=== PATIENT | female | born 1940 | race Caucasian/White ===

== ENCOUNTER 2022-12-23 13:27 | Inpatient (IN) | payer OTHER ==
[~2022-12-23] VITALS: Ht 152.4 cm; Wt 48.5 kg
--- NOTE | 2022-12-23 14:05 | NUR ---
PATIENT IS RECIEVED SAYING THAT SHE HAS BEEN HAVING DIFFICULTY BREATHING FOR THREE DAYS AND CANNOT WALK WITHOUT GETTING FATIGUED. RESPIRATORY THERAPY IS NOTIFIED.
[2022-12-23] MEDS ORDERED: CRESTOR40 MG (14:20)
[2022-12-23] MEDS ORDERED: LIPOFEN150 MG (14:20)
[2022-12-23] MEDS ORDERED: PRILOSEC OTC20 MG (14:20)
[2022-12-23] MEDS ORDERED: ALDACTONE25 MG (14:21)
[2022-12-23] MEDS ORDERED: CARDURA XL8 MG (14:21)
[2022-12-23] MEDS ORDERED: SYNTHROID50 MCG (14:21)
[2022-12-23] MEDS ORDERED: ZYRTEC10 M3 (14:21)
[2022-12-23] MEDS ORDERED: TOPROL XL50 M1 (14:21)
[2022-12-23] MEDS ORDERED: LASIX20 MG (14:22)
[2022-12-23] MEDS ORDERED: SENOKOT8.6 M1 (14:22)
--- NOTE | 2022-12-23 14:24 | NUR ---
SE ORIENTA PTE SOBRE EL TRATAMIENTO ORDENADO POR EL DR OWEN PTE ALERTA Y ORIENTADO POR 3 SE REALIZAN MUESTRAS DE LABORATORIO PTE EN ESPERA DE ESTUDIO
--- NOTE | 2022-12-23 15:30 | NUR ---
SE RECIBE PTE ALERTA ORIENTADA X3.EN CAMA CON BARANDAS ELEVADAS POR OLGUIN SEGURIDAD EN UNIDAD DE CHEST PAIN #18, CONECTADA A MONITOR CARDIACO [id number](SINUSAL).PENDIENTE RESULTADOS DE LABORATORIO Y REEVALUACION MEDICA.SE ORIENTA PTE SOBRE OBJETIVO DE TX MEDICO.
--- NOTE | 2022-12-23 16:33 | NUR ---
SE ORIENTA PTE SOBRE TX A SEGUIR, LA MISMA REFIERE ENTENDER, SE COLECTAN MUESTRAS DE LAB BAJO MEDIDAS ASEPTICAS Y SE ADMINISTRAN MEDICAMENTOS NAUN ORDEN MEDICA
== END 2023-01-01 10:02 | disposition expired | DRG 189 ==
LOC: ER 13:27 → CPU-OBS 13:40 → ER 13:40 → ICU-2 18:45 → ICU 18:45
PROVIDERS: ADMIT Internal Medicine; ATTEND Internal Medicine
PROC: BW24ZZZ Computerized Tomography (CT Scan) of Chest and Abdomen (ICD-10-PCS; 2022-12-23)
PROC: 30243N1 Transfusion of Nonautologous Red Blood Cells into Central Vein, Percutaneous Approach (ICD-10-PCS; 2022-12-24)
PROC: 3E0F7GC Introduction of Other Therapeutic Substance into Respiratory Tract, Via Natural or Artificial Opening (ICD-10-PCS; 2022-12-24)
PROC: BT43ZZZ Ultrasonography of Bilateral Kidneys (ICD-10-PCS; 2022-12-24)
PROC: B24BYZZ Ultrasonography of Heart with Aorta using Other Contrast (ICD-10-PCS; 2022-12-24)
PROC: 02HV33Z Insertion of Infusion Device into Superior Vena Cava, Percutaneous Approach (ICD-10-PCS; 2022-12-28)
PROC: 5A09457 Assistance with Respiratory Ventilation, 24-96 Consecutive Hours, Continuous Positive Airway Pressure (ICD-10-PCS; principal; 2022-12-30)
DX: J81.1 Chronic pulmonary edema (principal); J12.9 Viral pneumonia, unspecified; J80 Acute respiratory distress syndrome; I50.33 Acute on chronic diastolic (congestive) heart failure; N17.9 Acute kidney failure, unspecified; A31.0 Pulmonary mycobacterial infection; I13.0 Hypertensive heart and chronic kidney disease with heart failure and stage 1 through stage 4 chronic kidney disease, or unspecified chronic kidney disease; I50.9 Heart failure, unspecified; D64.9 Anemia, unspecified; E11.22 Type 2 diabetes mellitus with diabetic chronic kidney disease; Z79.4 Long term (current) use of insulin; J84.115 Respiratory bronchiolitis interstitial lung disease; N18.2 Chronic kidney disease, stage 2 (mild); I35.0 Nonrheumatic aortic (valve) stenosis; Z66 Do not resuscitate